=== PATIENT | male | born 1975 | race Caucasian/White ===

== ENCOUNTER → 2018-01-09 | Outpatient (CLI) | payer MEDICAID ==
[~2018-01-09] MED LIST: ALBU6.7H INH; ALLO100T64 PO; AMLO10TA2 PO; COLC0.6T37 PO; CYCL10TA50 PO; ERGO500017 PO; ESOM40CA PO; GEMF600T4 PO; LEVO88TA4 PO; LISI5TAB PO; METF500T27 PO; MORP15TA17 PO; OXYC5CAP2 PO; PROM25TA10 PO; RANI300T PO
== END | disposition home or self-care (01) ==
LOC: CFH 15:57
PROVIDERS: ATTEND Nurse Practitioner
DX: M84.375D Stress fracture, left foot, subsequent encounter for fracture with routine healing (principal); M51.87 Other intervertebral disc disorders, lumbosacral region; X58.XXXD Exposure to other specified factors, subsequent encounter
CPT/HCPCS: 72052; 72114

== ENCOUNTER 2018-03-02 20:01 | Inpatient (IN) | payer MEDICAID ==
[~2018-03-02] VITALS: Ht 177.8 cm; Wt 170.0 kg
[~2018-03-02 20:01] MED LIST changes: -AMLO10TA2 PO; +AMLO10TA6 PO
[2018-03-02] MEDS ORDERED: MORPHINE SULFATE 4 MG/ML, 1ML ONE (20:52)
[2018-03-02 20:59] LABS: BASOPHILS # (AUTO) 0.04 x10^3/uL (0-0.1); BASOPHILS % (AUTO) 0 % (0-1); EOSINOPHILS # (AUTO) 0.55 x10^3/uL (0-0.4); EOSINOPHILS % (AUTO) 5 % (1-7); LYMPHOCYTES # (AUTO) 2.06 x10^3/uL (1-3.4); LYMPHOCYTES % (AUTO) 18 % (22-44); MD NO; MEAN CORPUSCULAR HEMOGLOBIN 28.7 pg (27.5-34.5); MEAN CORPUSCULAR HGB CONC 33.2 g/dL (33.2-36.2); MEAN CORPUSCULAR VOLUME 86.3 fL (81-97); MONOCYTES % (AUTO) 8 % (2-9); NEUTROPHILS # (AUTO) 7.91 x10^3/uL (1.8-6.8); NEUTROPHILS % (AUTO) 69 % (42-75); PLATELET COUNT 271 x10^3/uL (130-400); RED BLOOD COUNT 4.98 x10^6/uL (4.38-5.82); RED CELL DISTRIBUTION WIDTH 14.5 % (9.4-14.8)
[2018-03-02] MEDS ORDERED: VANCOMYCIN 2,500 MG in SODIUM CHLORIDE 0.9% 500 ML IV ONE (21:00)
[2018-03-02] MEDS ORDERED: VANCOMYCIN PER PHARMACY IV ONE (21:00)
[2018-03-02] MEDS ORDERED: MORPHINE SULFATE 4 MG/ML, 1ML IVPush PRN (21:00)
[2018-03-02] MEDS ORDERED: SODIUM CHLORIDE 0.9% 1,000ML IVBOLUS ONE (21:00)
[2018-03-02] MEDS ORDERED: SODIUM CHLORIDE FLUSH 10ML SYR IVF ONE (21:00)
[2018-03-02] MEDS ORDERED: AMPICILLIN/SULBACTAM 3 GM in SODIUM CHLORIDE 0.9% 100 ML IVPB ONE (21:00)
[2018-03-02 21:10] LABS: ALBUMIN 3.4 g/dL (3.4-5.0); ANION GAP 6 mmol/L (5-15); CALCIUM 8.9 mg/dL (8.5-10.1); CHLORIDE 108 mmol/L (98-107); CREATININE 1.11 mg/dL (0.7-1.3)
[2018-03-02] MEDS ORDERED: VANCOMYCIN PER PHARMACY MC PRN (23:00)
[2018-03-02] MEDS ORDERED: BISACODYL 10 MG SUPP PR PRN (23:00)
[2018-03-02] MEDS ORDERED: KETOROLAC 30 MG/1 ML IV PRN (23:00)
[2018-03-02] MEDS ORDERED: ERGOCALCIFEROL 50,000 UNIT CAPSULE PO SCH (23:00)
[2018-03-02] MEDS ORDERED: ONDANSETRON ODT 4 MG PO PRN (23:00)
[2018-03-02] MEDS ORDERED: POLYETHYLENE GLYCOL 17 GM PACKET PO PRN (23:00)
[2018-03-02] MEDS ORDERED: ACETAMINOPHEN 325 MG TABLET PO PRN (23:00)
[2018-03-02] MEDS ORDERED: PHARMACOKINETIC MONITORING MC PRN (23:30)
[2018-03-02] MEDS ORDERED: PHARMACOKINETIC CONSULTATION MC ONE (23:30)
[2018-03-02 23:32] VITALS: BP 129/78
[2018-03-03 00:02] LABS: HEMOGLOBIN A1C 6.2 % (4.2-6.3)
[2018-03-03] MEDS: SODIUM CHLORIDE FLUSH 10ML SYR IVF SCH ×3 (00:14→21:00)
[2018-03-03] MEDS ORDERED: ALBUTEROL SULFATE 2.5 MG/3 ML NPPB PRN ×2 (01:00→17:30)
[2018-03-03 01:45] VITALS: BP 111/71
[2018-03-03] MEDS: AMPICILLIN/SULBACTAM 3 GM in SODIUM CHLORIDE 0.9% 100 ML IV SCH ×4 (02:42→20:23)
[2018-03-03 04:50] LABS: ALBUMIN 2.9 g/dL (3.4-5.0); ANION GAP 6 mmol/L (5-15); CALCIUM 8.4 mg/dL (8.5-10.1); CHLORIDE 108 mmol/L (98-107)
[2018-03-03 04:52] LABS: BASOPHILS # (AUTO) 0.03 x10^3/uL (0-0.1); BASOPHILS % (AUTO) 0 % (0-1); EOSINOPHILS # (AUTO) 0.36 x10^3/uL (0-0.4); EOSINOPHILS % (AUTO) 4 % (1-7); LYMPHOCYTES # (AUTO) 1.75 x10^3/uL (1-3.4); LYMPHOCYTES % (AUTO) 20 % (22-44); MD NO; MEAN CORPUSCULAR HEMOGLOBIN 28.6 pg (27.5-34.5); MEAN CORPUSCULAR HGB CONC 33.3 g/dL (33.2-36.2); MEAN PLATELET VOLUME 7.9 fL (7.4-10.4); MONOCYTES % (AUTO) 9 % (2-9); NEUTROPHILS # (AUTO) 5.98 x10^3/uL (1.8-6.8); NEUTROPHILS % (AUTO) 67 % (42-75); PLATELET COUNT 212 x10^3/uL (130-400); RED BLOOD COUNT 4.52 x10^6/uL (4.38-5.82); RED CELL DISTRIBUTION WIDTH 14.7 % (9.4-14.8)
[2018-03-03 04:54] LABS: ALANINE AMINOTRANSFERASE 42 U/L (12-78); ALKALINE PHOSPHATASE 66 U/L (45-117); BILIRUBIN,TOTAL 0.4 mg/dL (0.2-1.0); CREATININE 0.89 mg/dL (0.7-1.3); TOTAL PROTEIN 6.5 g/dL (6.4-8.2)
[2018-03-03] MEDS: LEVOTHYROXINE 88 MCG TABLET PO SCH (05:38)
[2018-03-03 07:53] VITALS: BP 120/74
[2018-03-03] MEDS: FAMOTIDINE 40 MG TABLET PO SCH ×2 (07:58→20:23)
[2018-03-03] MEDS: SENNA/DOCUSATE TABLET PO SCH (07:58)
[2018-03-03] MEDS: LISINOPRIL 5 MG TABLET PO SCH (07:59)
[2018-03-03] MEDS: GEMFIBROZIL 600 MG TABLET PO SCH ×3 (07:59→20:23)
[2018-03-03] MEDS: COLCHICINE 0.6 MG TABLET PO SCH ×2 (08:00→20:23)
[2018-03-03] MEDS: CYCLOBENZAPRINE 10 MG TABLET PO SCH ×3 (08:00→20:23)
[2018-03-03] MEDS: AMLODIPINE 10 MG TAB PO SCH (08:00)
[2018-03-03] MEDS: ALLOPURINOL 100 MG TABLET PO SCH (08:00)
[2018-03-03] MEDS: PANTOPROZOLE 40MG TABLET PO SCH (08:00)
[2018-03-03] MEDS: OXYcodone IR 5MG TABLET PO PRN ×2 (08:07→18:39)
[2018-03-03 15:34] VITALS: BP 114/64
[2018-03-03] MEDS ORDERED: FENTANYL PF 250 MCG/5ML ONE (16:19)
[2018-03-03] MEDS ORDERED: MIDAZOLAM 1 MG/ML, 2ML ONE (16:19)
[2018-03-03] MEDS ORDERED: BACITRACIN OINT 500U/GM, 15 GM ONE (16:35)
[2018-03-03] MEDS ORDERED: LIDOCAINE 1%-EPI 1:100K, 30ML ONE (16:35)
[2018-03-03] MEDS ORDERED: DEXAMETHASONE 4 MG/ML, 1ML ONE (16:38)
[2018-03-03] MEDS ORDERED: ONDANSETRON 2MG/ML, 2ML ONE (16:38)
[2018-03-03] MEDS ORDERED: SUCCINYLCHOLINE 20 MG/ML, 10ML ONE (16:38)
[2018-03-03] MEDS ORDERED: PROPOFOL 10 MG/ML, 20ML ONE (16:38)
[2018-03-03] MEDS ORDERED: LIDOCAINE 1%-EPI 1:100K, 30ML INFIL ONE (17:13)
[2018-03-03] MEDS ORDERED: MEPERIDINE/PF 25MG/0.5ML IVPush PRN (17:30)
[2018-03-03] MEDS ORDERED: LABETALOL 5MG/ML, 20ML IV PRN (17:30)
[2018-03-03] MEDS ORDERED: ACETAMINOPHEN 325 MG TABLET PO PRN (17:30)
[2018-03-03] MEDS ORDERED: LORazepam 2 MG/ML, 1ML IVPush PRN (17:30)
[2018-03-03] MEDS ORDERED: hydrALAzine 20 MG/ML, 1ML IV PRN (17:30)
[2018-03-03] MEDS ORDERED: OXYcodone 5 MG/5 ML ORAL.SOL UDC PO PRN (17:30)
[2018-03-03] MEDS ORDERED: OXYcodone 5 MG/5 ML ORAL.SOL UDC ONE (17:47)
[2018-03-03] MEDS ORDERED: HYDROmorphone 2 MG/ML, 1ML ONE (17:47)
[2018-03-03] MEDS: HYDROmorphone 1 MG/ML, 1ML IV PRN ×2 (17:54→17:56)
[2018-03-03] MEDS: FENTANYL PF 100 MCG/2ML IV PRN ×2 (17:56→18:05)
[2018-03-03] MEDS ORDERED: KETOROLAC 30 MG/1 ML ONE (17:59)
[2018-03-03] MEDS ORDERED: FENTANYL PF 100 MCG/2ML ONE (18:00)
[2018-03-03] MEDS: VANCOMYCIN 2,200 MG in SODIUM CHLORIDE 0.9% 500 ML IV SCH (18:39)
[2018-03-03 19:07] VITALS: BP 134/77
[2018-03-03 20:27] VITALS: BP 137/72
[2018-03-03 20:54] VITALS: BP 128/76
[2018-03-04] MEDS: AMPICILLIN/SULBACTAM 3 GM in SODIUM CHLORIDE 0.9% 100 ML IV SCH ×4 (02:47→20:04)
[2018-03-04 02:59] VITALS: BP 101/64
[2018-03-04] MEDS: VANCOMYCIN 2,200 MG in SODIUM CHLORIDE 0.9% 500 ML IV SCH ×2 (04:22→16:57)
[2018-03-04 06:48] VITALS: BP 105/65
[2018-03-04 07:56] LABS: BASOPHILS # (AUTO) 0.02 x10^3/uL (0-0.1); BASOPHILS % (AUTO) 0 % (0-1); EOSINOPHILS # (AUTO) 0.01 x10^3/uL (0-0.4); EOSINOPHILS % (AUTO) 0 % (1-7); LYMPHOCYTES # (AUTO) 1.08 x10^3/uL (1-3.4); LYMPHOCYTES % (AUTO) 10 % (22-44); MD NO; MEAN CORPUSCULAR HEMOGLOBIN 28.4 pg (27.5-34.5); MEAN CORPUSCULAR HGB CONC 32.7 g/dL (33.2-36.2); MEAN CORPUSCULAR VOLUME 86.7 fL (81-97); MEAN PLATELET VOLUME 7.7 fL (7.4-10.4); MONOCYTES # (AUTO) 0.42 x10^3/uL (0.2-0.8); MONOCYTES % (AUTO) 4 % (2-9); NEUTROPHILS # (AUTO) 9.12 x10^3/uL (1.8-6.8); NEUTROPHILS % (AUTO) 86 % (42-75); PLATELET COUNT 247 x10^3/uL (130-400); RED BLOOD COUNT 4.61 x10^6/uL (4.38-5.82); RED CELL DISTRIBUTION WIDTH 14.1 % (9.4-14.8)
[2018-03-04] MEDS: COLCHICINE 0.6 MG TABLET PO SCH ×2 (07:59→20:05)
[2018-03-04] MEDS: SENNA/DOCUSATE TABLET PO SCH (08:00)
[2018-03-04] MEDS: FAMOTIDINE 40 MG TABLET PO SCH ×2 (08:00→20:05)
[2018-03-04] MEDS: LISINOPRIL 5 MG TABLET PO SCH (08:00)
[2018-03-04] MEDS: LEVOTHYROXINE 88 MCG TABLET PO SCH (08:00)
[2018-03-04] MEDS: PANTOPROZOLE 40MG TABLET PO SCH (08:00)
[2018-03-04] MEDS: CYCLOBENZAPRINE 10 MG TABLET PO SCH ×3 (08:01→20:05)
[2018-03-04] MEDS: GEMFIBROZIL 600 MG TABLET PO SCH ×2 (08:01→20:05)
[2018-03-04] MEDS: AMLODIPINE 10 MG TAB PO SCH (08:01)
[2018-03-04] MEDS: ALLOPURINOL 100 MG TABLET PO SCH (08:01)
[2018-03-04] MEDS: OXYcodone IR 5MG TABLET PO PRN ×2 (08:01→15:42)
[2018-03-04] MEDS: SODIUM CHLORIDE FLUSH 10ML SYR IVF SCH ×2 (08:02→20:05)
[2018-03-04 08:07] LABS: ALANINE AMINOTRANSFERASE 46 U/L (12-78); ALBUMIN 3.1 g/dL (3.4-5.0); ANION GAP 6 mmol/L (5-15); CALCIUM 8.6 mg/dL (8.5-10.1); CHLORIDE 107 mmol/L (98-107); CREATININE 0.93 mg/dL (0.7-1.3)
[2018-03-04 08:09] LABS: ALKALINE PHOSPHATASE 71 U/L (45-117); BILIRUBIN,TOTAL 0.3 mg/dL (0.2-1.0); TOTAL PROTEIN 7.1 g/dL (6.4-8.2)
[2018-03-04 13:17] VITALS: BP 115/71
[2018-03-04 20:18] VITALS: BP 116/76
[2018-03-05] MEDS: OXYcodone IR 5MG TABLET PO PRN (02:55)
[2018-03-05] MEDS: AMPICILLIN/SULBACTAM 3 GM in SODIUM CHLORIDE 0.9% 100 ML IV SCH ×4 (02:55→20:52)
[2018-03-05 03:00] VITALS: BP 128/77
[2018-03-05] MEDS: VANCOMYCIN 2,200 MG in SODIUM CHLORIDE 0.9% 500 ML IV SCH ×2 (04:15→16:00)
[2018-03-05] MEDS: LEVOTHYROXINE 88 MCG TABLET PO SCH (06:13)
[2018-03-05 07:43] VITALS: BP 131/84
[2018-03-05] MEDS: GEMFIBROZIL 600 MG TABLET PO SCH ×2 (08:34→20:51)
[2018-03-05] MEDS: SODIUM CHLORIDE FLUSH 10ML SYR IVF SCH ×2 (08:34→20:52)
[2018-03-05] MEDS: AMLODIPINE 10 MG TAB PO SCH (08:34)
[2018-03-05] MEDS: CYCLOBENZAPRINE 10 MG TABLET PO SCH ×3 (08:35→20:51)
[2018-03-05] MEDS: COLCHICINE 0.6 MG TABLET PO SCH ×2 (08:35→20:51)
[2018-03-05] MEDS: ALLOPURINOL 100 MG TABLET PO SCH (08:35)
[2018-03-05] MEDS: PANTOPROZOLE 40MG TABLET PO SCH (08:35)
[2018-03-05] MEDS: LISINOPRIL 5 MG TABLET PO SCH (08:36)
[2018-03-05] MEDS: SENNA/DOCUSATE TABLET PO SCH (08:36)
[2018-03-05] MEDS: FAMOTIDINE 40 MG TABLET PO SCH ×2 (08:36→20:51)
[2018-03-05 12:05] VITALS: BP 100/64
[2018-03-05] MEDS ORDERED: VANCOMYCIN PER PHARMACY MC PRN (15:30)
[2018-03-05] MEDS ORDERED: PHARMACOKINETIC MONITORING MC PRN (16:00)
[2018-03-05] MEDS ORDERED: PHARMACOKINETIC CONSULTATION MC ONE (16:00)
[2018-03-05 21:05] VITALS: BP 124/77
[2018-03-06] MEDS: OXYcodone IR 5MG TABLET PO PRN ×2 (00:42→09:24)
[2018-03-06 02:54] VITALS: BP 129/66
[2018-03-06] MEDS: AMPICILLIN/SULBACTAM 3 GM in SODIUM CHLORIDE 0.9% 100 ML IV SCH ×3 (02:54→10:38)
[2018-03-06] MEDS: VANCOMYCIN 2,200 MG in SODIUM CHLORIDE 0.9% 500 ML IV SCH (03:52)
[2018-03-06 04:56] LABS: CREATININE 0.95 mg/dL (0.7-1.3)
[2018-03-06] MEDS: LEVOTHYROXINE 88 MCG TABLET PO SCH (06:10)
[2018-03-06 08:48] VITALS: BP 120/74
[2018-03-06] MEDS: GEMFIBROZIL 600 MG TABLET PO SCH (09:24)
[2018-03-06] MEDS: COLCHICINE 0.6 MG TABLET PO SCH (09:24)
[2018-03-06] MEDS: FAMOTIDINE 40 MG TABLET PO SCH (09:24)
[2018-03-06] MEDS: LISINOPRIL 5 MG TABLET PO SCH (09:24)
[2018-03-06] MEDS: SODIUM CHLORIDE FLUSH 10ML SYR IVF SCH (09:24)
[2018-03-06] MEDS: AMLODIPINE 10 MG TAB PO SCH (09:24)
[2018-03-06] MEDS: ALLOPURINOL 100 MG TABLET PO SCH (09:25)
[2018-03-06] MEDS: CYCLOBENZAPRINE 10 MG TABLET PO SCH (09:25)
[2018-03-06] MEDS: PANTOPROZOLE 40MG TABLET PO SCH (09:25)
[2018-03-06] MEDS: SENNA/DOCUSATE TABLET PO SCH (09:25)
[2018-03-06 13:00] VITALS: BP 138/93
== END 2018-03-06 13:07 | disposition left against medical advice (07) | DRG 580 ==
LOC: ED 20:57 → EDIP 22:17 → 3NW 23:08
PROVIDERS: ADMIT Internal Medicine; ATTEND Internal Medicine
PROC: 0W960ZZ Drainage of Neck, Open Approach (ICD-10-PCS; principal; 2018-03-03 15:00)
PROC: 5A09357 Assistance with Respiratory Ventilation, Less than 24 Consecutive Hours, Continuous Positive Airway Pressure (ICD-10-PCS; 2018-03-04)
PROC: 5A09357 Assistance with Respiratory Ventilation, Less than 24 Consecutive Hours, Continuous Positive Airway Pressure (ICD-10-PCS; 2018-03-05)
PROC: 5A09357 Assistance with Respiratory Ventilation, Less than 24 Consecutive Hours, Continuous Positive Airway Pressure (ICD-10-PCS; 2018-03-06)
DX: L02.11 Cutaneous abscess of neck (principal); F11.20 Opioid dependence, uncomplicated; Z68.43 Body mass index [BMI] 50.0-59.9, adult; L03.221 Cellulitis of neck; E78.5 Hyperlipidemia, unspecified; B96.89 Other specified bacterial agents as the cause of diseases classified elsewhere; E03.9 Hypothyroidism, unspecified; E11.9 Type 2 diabetes mellitus without complications; E66.01 Morbid (severe) obesity due to excess calories; G47.33 Obstructive sleep apnea (adult) (pediatric); G89.29 Other chronic pain; I10 Essential (primary) hypertension; M10.9 Gout, unspecified; Q18.0 Sinus, fistula and cyst of branchial cleft; Z79.4 Long term (current) use of insulin; Z85.828 Personal history of other malignant neoplasm of skin; Z79.899 Other long term (current) drug therapy
CPT/HCPCS: 36415; 70491; 80048; 80053; 80202; 82040; 82565; 83036; 84520; 85025; 87040; 87070; 87075; 87077; 87176; 87186; 87205; 96374; 96375; 99285; G0378; J0295; J1100; J1170; J1885; J2250; J2405; J2704; J3010; J3370; J3490; J0330; J7030; J7040

== ENCOUNTER 2020-05-14 16:07 | Emergency (ER) | payer MEDICAID ==
[~2020-05-14] VITALS: Ht 177.8 cm; Wt 151.3 kg
[~2020-05-14 16:07] MED LIST changes: -ALBU6.7H INH; +ALBU6.7H8 INH; +AMLO-211 PO; -AMLO10TA6 PO; -GEMF600T4 PO; +GEMF600T8 PO
[2020-05-14 16:13] VITALS: BP 115/77
[2020-05-14] MEDS ORDERED: DEXAMETHASONE 4 MG TABLET ONE (16:43)
[2020-05-14] MEDS ORDERED: DEXAMETHASONE 4 MG TABLET PO ONE (16:53)
--- NOTE | 2020-05-14 16:59 | NUR ---
Pt medicated, given crackers, plan of care discussed, pending xray.
--- NOTE | 2020-05-14 17:29 | NUR ---
Results back, chart up for ERP
--- NOTE | 2020-05-14 17:49 | NUR ---
Pt aware of PN. Pt aware of importance of filling RX medication antibiotics today.
== END 2020-05-14 17:53 | disposition home or self-care (01) ==
LOC: ED 17:52
DX: U07.1 COVID-19 (principal); J15.9 Unspecified bacterial pneumonia; I10 Essential (primary) hypertension; J45.909 Unspecified asthma, uncomplicated
CPT/HCPCS: 71045; 87635; 93005; 99284; 99285

== ENCOUNTER 2020-09-18 10:50 | Emergency (ER) | payer MEDICAID ==
[~2020-09-18] VITALS: Ht 177.8 cm; Wt 165.0 kg
[~2020-09-18 10:50] MED LIST changes: +GEMF-31 PO; -GEMF600T8 PO
--- NOTE | 2020-09-18 11:14 | NUR ---
PT PRESENTS TO ED WITH TENDER ABDOMEN AND NAUSEA THIS AM. PT REPORTS VOMIT LAST NIGHT. LAST BM TODAY. PT LAYING ON SIDE IN BED IN POSITION OF COMFORT. NAD NOTED AT THIS TIME. SIDE RAIL UP, CALL LIGHT IN REACH. MOTHER AT BEDSIDE.
[2020-09-18] MEDS ORDERED: SODIUM CHLORIDE FLUSH 10ML SYR IVF ONE (11:30)
[2020-09-18] MEDS ORDERED: ONDANSETRON 2MG/ML, 2ML IVPush ONE (11:30)
[2020-09-18] MEDS ORDERED: HYDROmorphone 1 MG/ML, 1ML INJ IV ONE ×2 (11:30→13:30)
--- NOTE | 2020-09-18 11:40 | NUR ---
PT AMBULATES WELL TO BATHROOM FOR UA INDEPENDENTLY.
[2020-09-18] MEDS ORDERED: HYDROmorphone 1 MG/ML, 1ML INJ ONE ×2 (11:51→13:09)
[2020-09-18] MEDS ORDERED: ONDANSETRON 2MG/ML, 2ML ONE (11:52)
[2020-09-18 12:05] LABS: BASOPHILS % (AUTO) 0 % (0-1); EOSINOPHILS % (AUTO) 1 % (1-7); LYMPHOCYTES % (AUTO) 12 % (22-44); MEAN CORPUSCULAR HEMOGLOBIN 28.1 pg (27.5-34.5); MEAN CORPUSCULAR HGB CONC 32.6 g/dL (33.2-36.2); MEAN PLATELET VOLUME 8.5 fL (7.4-10.4); MONOCYTES % (AUTO) 6 % (2-9); NEUTROPHILS % (AUTO) 81 % (42-75); PLATELET COUNT 239 x10^3/uL (130-400); RED BLOOD COUNT 5.29 x10^6/uL (4.38-5.82); RED CELL DISTRIBUTION WIDTH 14.9 % (9.4-14.8)
[2020-09-18 12:13] LABS: ALANINE AMINOTRANSFERASE 29 U/L (12-78); ANION GAP 3 mmol/L (5-15); CALCIUM 9.5 mg/dL (8.5-10.1); CHLORIDE 108 mmol/L (98-107); CREATININE 1.03 mg/dL (0.7-1.3)
[2020-09-18 12:15] LABS: ALKALINE PHOSPHATASE 68 U/L (45-117); BILIRUBIN,TOTAL 0.4 mg/dL (0.2-1.0); TOTAL PROTEIN 7.5 g/dL (6.4-8.2)
[2020-09-18 12:22] LABS: MD NO
[2020-09-18 12:24] LABS: ACETONE, SERUM Negative (Negative)
[2020-09-18 12:34] LABS: MICROSCOPIC INDICATED
--- NOTE | 2020-09-18 12:50 | NUR ---
PT RETURNED FROM IMAGING, SITTING UP IN BED. RESPIRATIONS EVEN AND UNLABORED ON RA. REPORT TO RICHIE NORMAN.
[2020-09-18] MEDS ORDERED: OMNIPAQUE 350 MG/ML, 150 ML BOTTLE ONE (12:53)
--- NOTE | 2020-09-18 12:55 | NUR ---
RECEIVED REPORT FROM MARC QUIROZ. ASSUMING CARE AT THIS TIME. PT RETURNED FROM CT.
[2020-09-18 12:59] VITALS: BP 140/69
--- NOTE | 2020-09-18 13:12 | NUR ---
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 DALY AT BEDSIDE TO UPDATE PT ON POC.
--- NOTE | 2020-09-18 13:27 | NUR ---
PT STATES HE HAS BEEN DRINKING WATER AND HAS NOT VOMITTED.
--- NOTE | 2020-09-18 13:29 | NUR ---
PT AMBULATED TO RESTROOM WITH STEADY GAIT.
== END 2020-09-18 13:58 | disposition home or self-care (01) ==
LOC: ED 12:27
DX: K56.600 Partial intestinal obstruction, unspecified as to cause (principal); R10.84 Generalized abdominal pain; R11.2 Nausea with vomiting, unspecified; E11.9 Type 2 diabetes mellitus without complications
CPT/HCPCS: 36415; 74177; 80053; 81001; 82010; 83690; 85025; 87086; 96374; 96375; 96376; 99285; J1170; J2405; Q9967